=== PATIENT | male | born 2000 | race Two or more races ===

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

== ENCOUNTER 2021-07-09 19:34 | Emergency (ER) | payer MEDICAID, OTHER ==
[~2021-07-09] VITALS: Ht 185.4 cm; Wt 125.0 kg
[2021-07-09 19:50] VITALS: BP 136/75
[2021-07-09] MEDS ORDERED: dexamethasone sod phosphate 10mg/ml inj PO STA (20:16)
[2021-07-09] MEDS ORDERED: KETO10TA2 PO (20:18)
[2021-07-09] MEDS ORDERED: LIDO20SO16 PO (20:18)
[2021-07-09] MEDS ORDERED: METH4TAB3 PO (20:18)
[2021-07-09] MEDS ORDERED: CEPH250T PO (20:18)
[2021-07-09] MEDS ORDERED: ketorolac trometh inj. 60 MG/2 ML VIAL IM ONE (20:20)
[2021-07-09] MEDS ORDERED: CefTRIAXone 1000mg IM Kit (w/lidocaine diluent) IM ONE (20:20)
== END 2021-07-09 20:37 | disposition home or self-care (01) ==
LOC: ER 19:35
DX: J02.0 Streptococcal pharyngitis (principal); Z79.2 Long term (current) use of antibiotics; Z79.899 Other long term (current) drug therapy
CPT/HCPCS: 96372; 99284; J0696; J1100; J1885